=== PATIENT | female | born 1970 | race Caucasian/White ===

== ENCOUNTER → 2017-05-04 | Outpatient (CLI) | payer BC ==
--- NOTE | 2017-05-05 14:11 | MAMMOGRAPHY REPORT ---
BILATERAL DIGITAL SCREENING MAMMOGRAM TOMOSYNTHESIS WITH CAD: 05/04/2017 CLINICAL HISTORY: Routine screening. Patient has no complaints. TECHNIQUE: Breast tomosynthesis in addition to standard 2D mammography was performed. Current study was also evaluated with a Computer Aided Detection (CAD) system. COMPARISON: Comparison is made to exams dated: 04/30/2016 mammogram, 04/26/2015 mammogram, 03/19/2014 mammogram, 04/09/2010 mammogram, 10/25/2014 mammogram, and 04/26/2015 ultrasound - [facility]. BREAST COMPOSITION: The tissue of both breasts is heterogeneously dense, which may obscure small mas ses. FINDINGS: The breast parenchyma is nodular in pattern, but similar comparing to prior mammograms. N o developing mass, architectural distortion or cluster of suspicious microcalcifications is seen in e ither breast. IMPRESSION: ACR BI-RADS CATEGORY 2: BENIGN There is no mammographic evidence of malignancy. A 1 year screening mammogram is recommended. The pa tient will receive written notification of the results. Approximately 10% of breast cancers are not detected with mammography. A negative mammographic report should not delay biopsy if a clinically suggestive mass is present. Aubree Bobo M.D. ay/:05/04/2017 16:51:00 Cashier Or Checker Stock Clerk: Karen NELSON(R)(M), [facility] letter sent: Normal 1/2 BI-RADS Code: ACR BI-RADS Category 2: Benign
== END | disposition home or self-care (01) ==
LOC: C.MAMM 08:03
PROVIDERS: ATTEND Obstetrics & Gynecology
DX: Z12.31 Encounter for screening mammogram for malignant neoplasm of breast (principal)

== ENCOUNTER → 2017-09-08 | Outpatient (CLI) | payer OTHER | END | disposition home or self-care (01) | LOC: C.PAPS 14:13 | PROVIDERS: ATTEND Obstetrics & Gynecology | DX: Z12.4 Encounter for screening for malignant neoplasm of cervix (principal) ==

== ENCOUNTER 2020-03-25 05:55 | Observation (INO) ==
--- NOTE | 2020-01-10 10:33 | PAT Medication Instructions ---
Medication Instructions Date of Service January 10, 2020 Home Medications multivitamin 1 tab PO QAM DO NOT take the morning of surgery multivitamin 1 tab PO QAM Other Notes If you have any questions please call us at [phone] or [phone] or [phone] or [phone]
--- NOTE | 2020-03-04 13:31 | Anesthesiology Consultation ---
Date of Service March 04, 2020 Assessment & Plan (1) Encounter for pre-operative examination: Chart Review Chart Review: Acceptable Risk for Surgery (pending preop Covid testing ) and Patient seen in Pre Admission Testing Pt states pain meds cause nausea - Check test AM DOS Per PAT appt on 03/04/20, pt resides in [facility]. Travels only to [facility]. No known Covid positive contacts or Covid related symptoms. Scheduled for preop Covid testing 03/19/20. Educated on importance of self quarantining, social distancing and wearing mask in public both for the patient and household contacts. Teaching & Discussion Pre-Anesthesia Teaching/Discussion Notes: Instructed NPO after midnight before surgery,except medications with 15 cc of water. Medication instructions provided according to the [facility] guidelines. History Surgery Operation Date: 03/25/20 07:30 Proposed Procedures p Robotic Total Laparoscopic Hysterectomy - Saba Naranjo MD, FACOG Height/Weight Height: 5 ft 8.5 in Weight: 70.1 kg Allergies Allergy/AdvReac Type Severity Reaction Status Date / Time povidone-iodine Allergy Mild RASH Verified 03/04/20 09:02 [From Betadine] soap [From Betadine] Allergy Mild RASH Verified 03/04/20 09:02 Medications Home Medications Medication Instructions Recorded Confirmed Last Taken multivitamin 1 tab PO QAM 01/05/20 03/04/20 Unknown Past Medical History Medical History Anxiety Spinal stenosis LOWER BACK Uterine fibroid Exercise / Class Metabolic Activity II 4-5 Yardwork/Stairs/Walk up hill (one flight of stairs - no chest pain or SOB ) Past Family History Family History Father Prostate cancer Mother History of Dereje's granulomatosis Other No family history of adverse response to anesthesia Past Surgical History Surgical History History of breast biopsy right--benign History of colonoscopy History of D&C History of lumbar laminectomy History of wisdom tooth extraction Nausea and vomiting after administration of anesthetic agent Past Anesthesia History No Hx of Anesthesia Complications (with exception to PONV ) and No Family Hx of Anesthesia Complications History of PONV History of PONV (scop patch ordered for DOS ) and Hx of Motion Sickness Social History Smoking Status: Never smoker Do You Dip or Chew Tobacco: No Hx Alcohol Use: Yes Alcohol type: beer and wine alcohol intake frequency: a few times a month Hx Substance Use: No substance use type: does not use Review of Systems Occ reflux- relieved with OTC meds Occ snoring - no witnessed apnea - no hx of sleep study Patient denies chest pain, shortness of breath, dyspnea on exertion, cough, wheezing, palpitations. No hx of seizures, stroke, [place]. No hx of blood clots or blood transfusions Physical Exam Vital Signs VITALS BP 109/73 P 72 TEMP 98.4 SP02 100% RESP 16 Constitutional no acute distress ENMT Mouth: no TMJ clicking Thyromental Distance: > or= 3.5 Finger Breadths (3.5) Mallampati Class: II Neck neck extension not limited Respiratory normal respiratory effort; no respiratory distress Auscultation: lungs clear to auscultation bilaterally; no wheezes Cardiovascular Rate/Rhythm: regular rate and regular rhythm Heart Sounds: no murmur Vessels: no carotid bruit Musculoskeletal Spine: no pain with cervical ROM Neurologic moves all extremities Psychiatric Orientation: alert Testing Laboratory Results 03/04/20 13:46 03/04/20 13:46 Blood Type AB Negative 03/04/20 13:46 Antibody Screen NEGATIVE 03/04/20 13:46 Electrocardiogram Date: 03/04/20 Findings: + NSR @ (71) Normal EKG.
[2020-03-04 14:28] LABS: Basophils # (auto) 0.02 K/uL (0-0.2); Basophils % (auto) 0.2 %; Eosinophils # (auto) 0.04 K/uL (0-0.5); Eosinophils % (auto) 0.4 %; Hematocrit (blood only) 37.2 % (37-47); Hemoglobin 12.3 g/dL (12.0-16.0); Immature Granulocytes # (auto) 0.01 K/uL (0.00-0.02); Immature Granulocytes % (auto) 0.1 %; Lymphocytes # (auto) 2.25 K/uL (1.2-3.4); Lymphocytes % (auto) 23.2 %; Mean Corpuscular Hemoglobin 29.9 pg (25-34); Mean Corpuscular Hgb Conc 33.1 g/dL (32-36); Mean Corpuscular Volume 90.3 fL (80-100); Mean Platelet Volume 10.6 fL (7.4-10.4); Monocytes # (auto) 0.82 K/uL (0.11-0.59); Monocytes % (auto) 8.5 %; Neutrophils # (auto) 6.54 K/uL (1.4-6.5); Neutrophils % (auto) 67.6 %; Platelet Count 242 K/uL (130-400); RDW Coefficient of Variation 12.7 % (11.5-14.5); RDW Standard Deviation 42.3 fL (36.4-46.3); Red Blood Count 4.12 M/uL (4.2-5.4); White Blood Count 9.68 K/uL (4.8-10.8)
[2020-03-04 14:42] LABS: BUN Creatinine Ratio 15.5 (10-20); Calcium 8.8 mg/dl (8.5-10.1); Creatinine Clr Calc Pharmacy 125.1 ml/min; Est GFR (African American) 125.7; Est GFR (Non-African American) 108.5; Potassium 4.3 mmol/L (3.5-5.1)
--- NOTE | 2020-03-04 15:31 | Electrocardiogram Report ---
Test Reason : Blood Pressure : / mmHG Vent. Rate : 071 BPM Atrial Rate : 071 BPM P-R Int : 144 ms QRS Dur : 084 ms QT Int : 398 ms P-R-T Axes : 068 078 069 degrees QTc Int : 432 ms Normal sinus rhythm Normal ECG No previous ECGs available Confirmed by Quoc Connelly ([id number]) on 03/04/2020 3:31:32 PM Referred By: Saba Naranjo Confirmed By:Quoc Connelly
[2020-03-25] MEDS ORDERED: LR 15ML/HR IV SCH (06:00)
[2020-03-25] MEDS ORDERED: LACTATED RINGER'S 1,000 ML IV SCH ×2 (06:00→10:00)
[2020-03-25] MEDS ORDERED: PHENAZOPYRIDINE HCL 200 MG TAB PO SCH (06:00)
[2020-03-25] MEDS ORDERED: ceFAZolin 2000MG 2,000 MG/15 ML SYR IV SCH (06:00)
[2020-03-25] MEDS ORDERED: ACETAMINOPHEN 1000 MG/100 ML IV IV ONE (06:22)
[2020-03-25] MEDS ORDERED: MIDAZOLAM HCL 1 MG/ML 2ML VIAL ONE (06:33)
[2020-03-25] MEDS ORDERED: fentaNYL citrate 100 MCG/2 ML VIAL ONE ×2 (06:34→09:51)
[2020-03-25] MEDS ORDERED: LABETALOL HCL IV 5 MG/ML 20ML IV PRN (06:56)
[2020-03-25] MEDS ORDERED: ATROPINE SULFATE 0.1 MG/ML 10ML SYR IV PRN (06:56)
[2020-03-25] MEDS ORDERED: FLUMAZENIL 0.1 MG/1 ML 10 ML VIAL IV PRN (06:56)
[2020-03-25] MEDS ORDERED: ePHEDrine sulfate 50 MG/ML AMP IV PRN (06:56)
[2020-03-25] MEDS ORDERED: PROMETHAZINE HCL 12.5 MG in SODIUM CHLORIDE 0.9% 50 ML IV PRN ×2 (06:56→10:00)
[2020-03-25] MEDS ORDERED: NALOXONE HCL 0.4 MG/1 ML VIAL/CARP IV PRN (06:56)
[2020-03-25] MEDS ORDERED: ONDANSETRON INJ 2 MG/ML 2 ML VIAL IV PRN ×2 (06:56→10:00)
[2020-03-25] MEDS ORDERED: BUPIVACAINE 0.5 % 5 MG/1 ML MPF 30ML VIAL ONE (07:03)
--- NOTE | 2020-03-25 07:19 | History & Physical Bridge Note ---
Date of Service March 25, 2020 History & Physical Bridge Note I have examined the patient, reviewed the History & Physical and in the interval since the performance of the History & Physical I have noted the following changes of clinical significance: no changes noted
[2020-03-25] MEDS ORDERED: GLYCOPYRROLATE 0.2 MG/ML VIAL ONE (08:17)
[2020-03-25] MEDS ORDERED: ONDANSETRON INJ 2 MG/ML 2 ML VIAL ONE (08:17)
[2020-03-25] MEDS ORDERED: DEXAMETHASONE SOD INJ 4 MG/ML VIAL ONE (08:17)
[2020-03-25] MEDS ORDERED: ROCURONIUM BROMIDE 10 MG/ML 5 ML VIAL IV ONE (08:17)
[2020-03-25] MEDS ORDERED: LIDOCAINE HCL 2% 2 ML VIAL/AMP(20MG/ML) INFIL ONE (08:17)
[2020-03-25] MEDS ORDERED: PROPOFOL IV EMULSION 10 MG/ML 20 ML VIAL IV ONE (08:17)
[2020-03-25] MEDS ORDERED: NEOSTIGMINE METHYLSULFATE 5 MG/5 ML SYR ONE (08:17)
--- NOTE | 2020-03-25 09:57 | Post Operative Brief Note ---
PG Immediate Post Op with CF Date of Surgery March 25, 2020 Pre & Post Diagnosis Operation Date: 03/25/20 07:30 Pre-Op Diagnosis: Symptomatic Fibroid Uterus, Menorrhagia Post-Op Diagnosis: Symptomatic Fibroid Uterus, Menorrhagia I identified the patient and participated in the time-out.: Yes Procedure Operation Date: 03/25/20 07:30 Actual Procedures p Robotic Assisted Total Laparoscopic Hysterectomy with Bilateral Salpingectomy and Cystoscopy(Not Applicable) - Saba Naranjo MD, FACOG Surgeon Saba Naranjo MD, FACOG Bowling Ball Patcher Rosamaria Estimated Blood Loss 5 Findings Consistent with Post-Op Diagnosis (enlarged uterus 14wk size, multiple fibroids. normal ovaries and fallopian tubes bilaterally. cyst findings with normal bladder filling and normal ureteral jets. ) Fluids 1000cc Specimens Specimen Description: A. Uterus, cervix, and bilateral fallopian tubes Drains Leach Catheter (18 Fr leach catheter inserted by Dr. Naranjo, Draining clear yellow urine, anesthesia to monitor urine output.) Anesthesia Type General Complications none Disposition Accompanied Patient To Recovery: No Disposition: Recovery Room
[2020-03-25] MEDS ORDERED: IBUPROFEN 600 MG TAB PO PRN (10:00)
[2020-03-25] MEDS ORDERED: oxyCODONE/ACETAMINOPHEN 5mg/325mg TAB PO PRN ×2 (10:00)
[2020-03-25] MEDS ORDERED: ACETAMINOPHEN 325 MG TAB PO PRN (10:00)
[2020-03-25] MEDS ORDERED: SIMETHICONE 80 MG CHEW PO PRN (10:00)
[2020-03-25] MEDS: fentaNYL citrate 100 MCG/2 ML VIAL IV PRN ×4 (10:17→10:32)
--- NOTE | 2020-03-25 10:24 | Operative Report ---
PG Post Operative Report Pre & Post Diagnosis Operation Date: 03/25/20 07:30 Pre-Op Diagnosis: Symptomatic Fibroid Uterus, Menorrhagia Post-Op Diagnosis: Symptomatic Fibroid Uterus, Menorrhagia I identified the patient and participated in the time-out.: Yes Procedure Operation Date: 03/25/20 07:30 Actual Procedures 1. Total Laparoscopic Hysterectomy 2. Bilateral Salpingectomies 3. Cystoscopy 4. Robotic Assistance Surgeon Saba Naranjo MD, FACOG Leveling Machine Operator Rosamaria Estimated Blood Loss 5 Findings Consistent with Post-Op Diagnosis (enlarged uterus 14wk size, multiple fibroids 4-6cm in size. normal ovaries and fallopian tubes bilaterally. cyst findings with normal bladder filling and normal ureteral jets. ) Fluids 1000 Specimens uterus, cervix, bilateral fallopian tubes Drains leach Anesthesia Type General Complications none Disposition Accompanied Patient To Recovery: No Disposition: Recovery Room Indications 50yo with cc of symptomatic fibroid uterus and menorrhagia who desires definitive management. Patient initially presented this summer with pressure symptoms on her bladder. Ultrasound showed markedly enlarge uterus with multiple fibroids. Normal ovaries seen. She was also having heavy flow with periods. Description of Procedure The patient was taken to the operating room and identified. After adequate general anesthesia was obtained she was placed in the dorsolithotomy position and prepped and draped in the usual sterile fashion. Attention was turned to the patient's vagina where a weighted speculum and anterior retractor were used to visualize the cervix. The cervix was grasped on its anterior lip with an allis clamp. A single interrupted suture of 0-vicryl was placed at the 3 o'clock position and tied down. The uterus sounded to 10cm. The V-Care uterine manipulator was placed through the cervical os into the uterine cavity and the balloon was inflated. The cup was tied down against the cervix with the suture material and the stabilizing cup was placed. A leach catheter had already been placed under sterile conditions. The retractors were removed and attention was then turned to the patient's abdomen. The scalpel was used to make a supraumbilical skin incision and the veress needle was placed intraperitoneally with an opening pressure of 4mm Hg. A CO2 pneumoperitoneum was created. The 12mm optical trocar attached to the laparoscope was then placed intraperitoneally and the patient was placed in steep Trendelenburg. The pelvis and abdomen were inspected with the findings as noted above. Two Da Caroline trocar sites were created right of the midline and one site left of midline by first make skin incisions with the scalpel and then placing under direct visualization Da Caroline trocars. A blunt probe was used to move the bowel away from the planned operative sites. The laparoscope was removed and the Da Caroline Robot was brought to the patient's bedside. The appropriate arms were connected to the appropriate trocars. The camera was introduced. The monopolar compa and the fenestrated bipolar instruments were brought through instrument arms #1 and #2 respectively under direct visualization. A Prograsp was brought through instrument arm #3. The surgeon then went to the console. Using manipulation from below the right uterine ovarian/fallopian tube/round ligament complex was identified. The ureter was seen coursing well below the planned operative site. This complex was coagulated and transected gradually with the bipolar cautery followed by the monopolar compa. This was difficult as the uterus was quite large and even with manipulation visualization was difficult. The anterior and posterior leaves of the broad ligament were opened and the bladder flap was begun anteriorly towards the anterior midline. Attention was then turned to the left uterine ovarian/fallopian tube/round ligament complex which was identified and sequentially cauterized and cut in a similar manner. The broad ligament leaves were opened up on this side and a bladder flap was created from this side meeting in the midline anteriorly. The bladder was pushed away bluntly from the planned colpotomy site. The uterine artery pedicle was skeletonized on this side and the vessels wer coagulation and cut sequentially as well as the cardinal ligament attachments. Attention was returned to the right uterine artery pedicle which was bluntly skeletonized. With the bladder well away from the planned operative sites, the uterine artery pedicle was cauterized and coagulated. It was then transected and sequentially the cardinal ligament attachments were also coagulated and cut. The pedicle was pushed well away from the planned colpotomy. The bladder had been dissected and pushed well away from the planned colpotomy site. The uterus was raised and the colpotomy was begun posteriorly but unfortunately the manipulator perforated the uterus and was replaced. Then with gentle pressure the uterus was elevated and the colpotomy was cauterized and cut circumferentially to transect the cervix from the upper vagina. The specimen was then brought out vaginally and a sponge was placed in the vagina to maintain the pneumoperitoneum. The fallopian tubes had been resected and were attached to the uterus as specimens. Operative sites were hemostatic. The monopolar compa were replaced with a large needle cmv driver and the 2-0 V-Lock 90 suture was brought through the vagina. The cuff was closed in a routine fashion with this suture material and back sutures were placed. The sponge was removed from the vagina and the pneumoperitoneum was maintained. The suture material was cut and the needle was removed from the abdomen through instrument arm #1. After the needle was removed the suction button grader was brought through the right trocar and the pelvis was irrigated and the operative sites were hemostatic. The pneumoperitoneum was let down and no bleeding sites were noted. The cystoscopy was then performed with the findings as noted above and a new leach catheter was placed. The camera and all laparoscopic instruments were removed and the robot was then undocked and moved away from the patient's bedside. The CO2 gas was allowed to escape from the patient's abdomen. The trocars were removed. The supraumbilical tissues were reapproximated with 0 vicryl and all skin incisions were closed with 4-0 vicryl in a subcuticular fashion. The incisions were injected with marcaine and dressed with band-aids. At this point the procedure was terminated. The patient was returned to the supine position and transported to the recovery room in stable condition. All sponge lap and needle counts were correct x 2. I attest to the content of the Intraoperative Record and any orders documented therein. Any exceptions are noted below. DANCING MASTER Major Procedure Codes Hysterectomy 16338 TLH >250g +S/O Miscellaneous 38749 Cystoscopy
[2020-03-25] MEDS ORDERED: HYDROmorphone INJ 0.5 MG/0.5 ML SYR ONE (10:37)
[2020-03-25] MEDS: HYDROmorphone INJ 0.5 MG/0.5 ML SYR IV STA ×2 (10:37→10:42)
[2020-03-25] MEDS ORDERED: HYDROmorphone INJ 0.5 MG/0.5 ML SYR IV PRN (10:40)
--- NOTE | 2020-03-25 11:08 | Anesthesiology Progress Note ---
Date of Service March 25, 2020 Anesthesia Post Procedure Vital Signs Vital Signs: Temp Pulse Pulse Resp BP Pulse Ox 03/25/20 10:55 72 16 125/78 100 03/25/20 10:45 70 16 130/72 100 03/25/20 10:35 69 16 124/85 100 03/25/20 10:25 69 16 146/89 H 100 03/25/20 10:15 86 16 144/49 H 100 03/25/20 10:07 36.7 C 82 16 141/79 H 100 03/25/20 06:22 36.8 C 71 18 128/70 100 Transfer of Care Handoff Completed per policy Notes Mental Status: alert / awake / arousable Patient Amnestic to Procedure: Yes Nausea / Vomiting: adequately controlled Pain: adequately controlled Airway Patency, RR, SpO2: stable & adequate BP & HR: stable & adequate Hydration State: stable & adequate Anesthetic Complications: no major complications apparent
--- NOTE | 2020-03-25 14:37 | Gynecologic Progress Note ---
Date of Service March 25, 2020 Assessment & Plan (1) Fibroid uterus: (2) Menorrhagia: s/p TLH, reviewed findings at surgery and postop care and intructions. strongly urge pt to soften stool, not strain. has postop scheduled. call with any concerns. will go home when meets criteria. Admission and Anticipated Discharge Date Admission Date: March 25, 2020 Subjective doing well. denies n/v. had some clears. no pain but some shoulder pain. has not voided yet. Physical Exam Constitutional: WD/WN, vitals as above Results & Data ([facility]) Vital Signs (Past 12 Hours) Vital Signs Temp Pulse Pulse Pulse Resp BP Pulse Ox 03/25/20 13:30 97.9 F 79 20 112/71 99 03/25/20 12:15 97.9 F 78 20 103/69 98 03/25/20 11:45 85 16 115/69 03/25/20 11:15 98.2 F 79 20 122/74 97 03/25/20 10:55 72 16 125/78 100 03/25/20 10:45 70 16 130/72 100 03/25/20 10:35 69 16 124/85 100 03/25/20 10:25 69 16 146/89 H 100 03/25/20 10:15 86 16 144/49 H 100 03/25/20 10:07 98.1 F 82 16 141/79 H 100 03/25/20 06:22 98.2 F 71 18 128/70 100 PG Care Time/CCT Total # of Minutes Spent Total Time Spent with Patient: Total time spent is greater than 50% in coordination of care (as documented) at patient's floor/unit and/or counseling patient: Coding Level of Care Code None Diagnoses Fibroid uterus D25.9 Menorrhagia N92.0
[2020-03-25] MEDS ORDERED: Scopolamine CHECK PATCH PLACEMENT SCH (16:00)
--- NOTE | 2020-03-25 19:07 | Discharge Summary ---
Date of Service Date of admission and discharge: March 25, 2020 Discharge Data Procedures Performed Operation Date: 03/25/20 07:30 Actual Procedures p Robotic Assisted Total Laparoscopic Hysterectomy with Bilateral Salpingectomy and (Not Applicable) - Saba Naranjo MD, DEISY s Cystoscopy(Not Applicable) - Saba Naranjo MD, [facility] Hospital Course (1) Menorrhagia: (2) Fibroid uterus: Patient was admitted and underwent the above stated procedures. Please see her H&P for more detail. The procedures were performed without incident. Her postop recovery and course were uncomplicated and on POD #0 she was stable for discharge to home. She was tolerating a regular diet, voiding and ambulating without difficulty and her pain was well controlled on oral pain medications. Her instructions were reviewed and followup reviewed which was planned for approximately 2 weeks. She was sent appropriate pain medicine scripts to her pharmacy. Coding Level of Care Code None Diagnoses Menorrhagia N92.0 Fibroid uterus D25.9
== END 2020-03-25 18:46 | disposition home or self-care (01) ==
LOC: ASU 05:55 → 4S2 05:55